=== PATIENT | female | born 1980 | race Caucasian/White ===

== ENCOUNTER 2016-09-11 03:24 | Inpatient (IN) | payer BC ==
--- NOTE | 2016-09-02 11:52 | PAT Medication Instructions ---
Service Date Sep 02, 2016. Current Home Medication List Acetaminophen (Tylenol), 325 MG PO PRN Amoxicillin (Amoxil), 500 MG PO TID Ascorbic Acid (Ascorbic Acid), 1,000 MG PO QPM Multivit/Min/Iron/Fol Ac/Pren ( Vitamin), 1 TAB PO QAM Medication Instructions For Your Scheduled Surgery - Hold the following medications the morning of surgery: Multivit/Min/Iron/Fol Ac/Pren ( Vitamin), 1 TAB PO QAM - Take the following medications as scheduled the night before surgery: Ascorbic Acid (Ascorbic Acid), 1,000 MG PO QPM Acetaminophen (Tylenol), 325 MG PO PRN If you have any questions please call us at [phone] or [phone] or [phone]
[2016-09-02 12:18] LABS: BASO % 0.1 %; BASO ABS # 0.01 K/uL (0-0.2); COMPLETE YES; EOS % 0.2 %; IG% 0.4 %; LYMPH % 18.3 %; LYMPH ABS # 1.52 K/uL (1.2-3.4); MEAN CELL VOLUME 88.2 fL (80-100); MEAN PLATELET VOLUME 12.3 fL (7.4-10.4); MONO % 7.1 %; NEUT % 73.9 %; PLATELET COUNT 190 K/uL (130-400); RED BLOOD COUNT 3.97 M/uL (4.2-5.4); WHITE BLOOD COUNT 8.31 K/uL (4.8-10.8)
[2016-09-11] VITALS (18 sets, daily range): BP systolic 110–130; BP diastolic 69–84; PULSE 63–87; TEMP 36.5–37; O2SAT 96–100; Ht 160 cm; Wt 65.5 kg
[~2016-09-11] VITALS: Ht 160 cm; Wt 65.5 kg
[~2016-09-11 03:24] MED LIST: ACET-1311 PO; AMOX500C3 PO; ASCO100061 PO; PRENTAB26 PO
[2016-09-11] MEDS ORDERED: LACTATED RINGER'S 1000ML 1,000 ML IV ONE (05:40)
[2016-09-11] MEDS ORDERED: CEFAZOLIN IV 2,000 MG in DEXTROSE 5% 50ML IV SCH (06:00)
[2016-09-11] MEDS ORDERED: CITRIC ACID/SODIUM CITRATE 15 ML UDC PO SCH (06:00)
[2016-09-11] MEDS ORDERED: LACTATED RINGER'S 1000ML 1,000 ML IV SCH (06:00)
--- NOTE | 2016-09-11 06:57 | History & Physical Bridge Note ---
H&P Re-Evaluation Bridge Note: I have examined the patient, reviewed the History & Physical and in the interval since the performance of the History & Physical I have noted the following changes of clinical significance: No changes noted
[2016-09-11] MEDS ORDERED: OXYTOCIN INJ 10 UNITS/ML VIAL ONE (07:01)
[2016-09-11] MEDS ORDERED: PHENYLEPHRINE HCL INJ 10 MG/ML VIAL ONE (07:01)
[2016-09-11] MEDS ORDERED: MoRPHine SULFATE PF 1 MG/ML 10 ML AMP/VIAL ONE (07:02)
[2016-09-11 07:39] LABS: BASO % 0.1 %; BASO ABS # 0.01 K/uL (0-0.2); EOS % 0.4 %; HEMATOCRIT 34.4 % (37-47); IG% 0.8 %; LYMPH ABS # 1.86 K/uL (1.2-3.4); MEAN CELL VOLUME 86.6 fL (80-100); MEAN CORPUSCULAR HEMOGLOBIN 30.2 pg (25-34); MONO % 10.6 %; NEUT % 69.1 %; PLATELET COUNT 187 K/uL (130-400); RED BLOOD COUNT 3.97 M/uL (4.2-5.4); WHITE BLOOD COUNT 9.81 K/uL (4.8-10.8)
[2016-09-11 07:44] LABS: COMPLETE YES; MEAN CORPUSCULAR HGB CONC 34.9 g/dl (32-36)
[2016-09-11] MEDS ORDERED: ONDANSETRON INJ 2 MG/ML 2 ML VIAL ONE (08:19)
[2016-09-11] MEDS: LACTATED RINGER'S 1000ML 1,000 ML IV SCH ×3 (08:48→18:14)
[2016-09-11] MEDS ORDERED: LACTATED RINGER'S 1000ML 500 ML IV PRN (08:58)
[2016-09-11] MEDS ORDERED: NALOXONE HCL INJ 1 MG in SODIUM CHLORIDE 0.9% 1000ML 1,000 ML IV PRN (08:58)
[2016-09-11] MEDS ORDERED: SODIUM CHLORIDE 0.9% 1000ML 1,000 ML IV PRN (08:58)
[2016-09-11] MEDS ORDERED: NALOXONE HCL INJ 0.08 MG in SYRINGE 1.8 ML IV PRN (08:58)
[2016-09-11] MEDS ORDERED: BENZOCAINE 20% AER SPR 82.5 GM CAN EXT PRN (09:00)
[2016-09-11] MEDS ORDERED: MoRPHine SULFATE PF 1 MG/ML 10 ML AMP/VIAL INT SPINAL PRN (09:00)
[2016-09-11] MEDS ORDERED: SUPERCREAM 0.870 % 15GM JAR EXT PRN (09:00)
[2016-09-11] MEDS ORDERED: DiphenhydrAMINE HCL 50 MG/ML VIAL IV PRN (09:00)
[2016-09-11] MEDS ORDERED: NALOXONE HCL 0.4 MG/1 ML VIAL/CARP IV PRN (09:00)
[2016-09-11] MEDS ORDERED: MoRPHine SULFATE 2 MG/ML CARP IV PRN (09:00)
[2016-09-11] MEDS ORDERED: HYDROCORTISONE ACETATE 25 MG SUPP PR PRN (09:00)
[2016-09-11] MEDS ORDERED: KETOROLAC TROMETHAMINE 30 MG/ML VIAL IV. PRN (09:00)
[2016-09-11] MEDS ORDERED: EpHEDrine SULFATE INJ 50 MG/ML AMP IV PRN (09:00)
[2016-09-11] MEDS ORDERED: NALBUPHINE HCL INJ 10 MG/ML AMP IV PRN (09:00)
[2016-09-11] MEDS ORDERED: LANOLIN OINT EXT PRN ×2 (09:00)
[2016-09-11] MEDS ORDERED: SENNA 8.6 MG TAB PO PRN (09:00)
[2016-09-11] MEDS ORDERED: DIPHTHERIA/TETANUS/PERTUSSIS 0.5 ML SYR/VIAL IM. ONE (09:00)
[2016-09-11] MEDS ORDERED: MAGNESIUM HYDROXIDE SUSP 30 ML UDC PO PRN (09:00)
[2016-09-11] MEDS ORDERED: ONDANSETRON INJ 2 MG/ML 2 ML VIAL IV PRN (09:00)
[2016-09-11] MEDS ORDERED: NO NARCOTICS OR SEDATIVES SCH (09:00)
[2016-09-11] MEDS ORDERED: MEPERIDINE HCL 25 MG/ML CARP IV PRN (09:00)
--- NOTE | 2016-09-11 09:06 | [facility] Post Operative Brief Note ---
Immediate Operative Summary Operative Date Sep 11, 2016. Pre-Operative Diagnosis REPEAT SECTION; HISTORY OF PRIOR T UTERINE INCISION; DESIRE FOR STERILIZATION Post-Operative Diagnosis SAME Procedure(s) Performed LOW TRANSVERSE SECTION AND BILATERAL TUBAL LIGATION Surgeon DR TRUONG Lead Sql Developer Surgeon(s) DR ROJAS Estimated Blood Loss 600 CC Findings Patient delivered a viable male via repeat C/S at 0807 on 09/11/2016 weighing 7#3oz in the vertex position. APGARs were 8 at 1 minute and 9 at 5 minutes. Please see pediatricians notes for further baby assessment. An intact placenta with a 3 VC delivered manually at 0808. Normal uterus and bilateral tubes and ovaries noted. Bilateral tubal ligation was performed via umberto technique. Tubal segments sent to pathology. Patient and baby tolerated the surgery well and was sent to recovery with stable vital signs. Fluids (cc crystalloids) 1750 Specimens PLACENTA-HOLD CORB BLOOD PORTION OF RIGHT AND LEFT FALLOPIAN TUBE Drains Arias to [place] Anesthesia Spinal Complication(s) None Disposition L&D
[2016-09-11] MEDS: OXYTOCIN INJ 30 UNITS in LACTATED RINGER'S 1000ML 1,000 ML IV SCH ×2 (09:11→17:32)
[2016-09-11] MEDS: SIMETHICONE 80 MG CHEW PO SCH ×3 (12:00→20:27)
--- NOTE | 2016-09-11 12:59 | Anesthesiology Progress Note ---
Anesthesia Post Op Note Date & Time Sep 11, 2016 at 13:00 Vital Signs Pain Intensity: 0.0 Vital Signs Past 12 Hours Date Time Temp Pulse Resp B/P Pulse Ox O2 Delivery O2 Flow Rate FiO2 09/11/16 12:03 18 98 09/11/16 12:03 36.5 76 18 110/74 98 Room Air 09/11/16 11:00 99 Room Air 09/11/16 11:00 Room Air 09/11/16 11:00 36.5 71 18 115/77 99 Room Air 09/11/16 11:00 18 99 Notes Mental Status: alert / awake / arousable, participated in evaluation Pt Amnestic to Procedure: Yes Nausea / Vomiting: adequately controlled Pain: adequately controlled Airway Patency, RR, SpO2: stable & adequate BP & HR: stable & adequate Hydration State: stable & adequate Neuraxial Anesthesia: was administered, sensory block resolved Anesthetic Complications: no major complications apparent
--- NOTE | 2016-09-11 17:21 | OPERATIVE REPORT ---
DATE OF OPERATION: 09/11/2016 PREOPERATIVE DIAGNOSES: 1. Intrauterine at 37 weeks and 6 days gestation. 2. History of prior vertical uterine incision, requesting repeat section. 3. Desires permanent sterilization. POSTOPERATIVE DIAGNOSES: Same. OPERATIVE PROCEDURE: Repeat low transverse section with bilateral tubal ligation. SURGEON: Dr. Siegel. CERTIFIED ORTHOTIST: Dr. Luna. ANESTHESIA: Spinal. ESTIMATED BLOOD LOSS: 600 mL. IV FLUIDS: 1750 mL crystalloids. URINE OUTPUT: 200 mL clear yellow urine. SPECIMENS: Placenta with 3-vessel cord, cord blood and portion of right and left fallopian tube. DRAINS: Arias to gravity. COMPLICATIONS: None. DISPOSITION: To labor and delivery. OPERATIVE FINDINGS: The patient delivered a viable male infant. The repeat section at 8:07 a.m. on 09/11/2016 weighing 7 pounds 3 ounces in the vertex position. Apgars were 8 at 1 minute and 9 at 5 minutes. Please see final assembly and packing supervisor's notes for further baby assessment. An intact placenta with 3-vessel cord was delivered manually at 808. Normal uterus and bilateral tubes and ovaries were noted. Bilateral tubal ligation was performed via [place] technique. Bilateral tubal segments were sent to pathology. The patient and baby tolerated the surgery well and were sent to recovery with stable vital signs. OPERATIVE PROCEDURE IN DETAIL: The patient was taken to the operating room where spinal anesthesia was administered. The patient was immediately placed in the dorsal supine position with a left lateral tilt and was prepped and draped in a manner appropriate for the procedure. Once the anesthesia was found to be adequate, a Pfannenstiel skin incision was made over the previous surgical scar and was carried down through to a layer of the rectus fascia. The fascia was nicked in the midline and extended bilaterally with curved Alexis scissors. The superior aspect of the fascial incision was grasped with Ronak clamps, elevated, and the rectus muscles were dissected off with the use of the curved Alexis scissors and electrocautery. Likewise, the inferior aspect of the fascial incision was grasped with Ronak clamps, elevated, and the rectus muscles were dissected off with the use of the curved Alexis scissors. The rectus muscles were in midline. Peritoneum was then entered and the peritoneal incision was then extended cephalocaudally with gentle traction. The bladder blade was then placed within the abdomen. The vesicouterine peritoneum was then identified and a bladder flap was created with Metzenbaum scissors and digital traction. The bladder flap was then reincorporated beneath the Terry blade. At this point, a transverse incision was made on the uterus and extended bilaterally with digital traction. Clear amniotic fluid was noted. The head was identified and delivered through the incision along with the rest of the body. Baby was bulb suctioned at delivery. Cord was clamped x2 and cut. The baby was then handed to an awaiting final assembly and packing supervisor for further evaluation and management. Cord blood was then obtained and intact placenta with 3-vessel cord was delivered through the incision. The uterus was then exteriorized and the uterus was then cleared of any trailing membranes and debris with the laparotomy sponge. The incision was then grasped with ringed forceps at 4 quadrants and was then closed with 0 Vicryl suture in continuous locking fashion. A second 0 Vicryl suture was used in imbricating fashion to ensure hemostasis. Any residual bleeding was then suture ligated with 0 Vicryl suture in a [id number] interrupted fashion. Excellent hemostasis was noted at the incision. Attention was then directed towards the right fallopian tube which was followed out to its fimbriated end, grasped at the midpoint and was suture ligated with 0 chromic suture in a Bibiana technique, it was double suture ligated with the 0 chromic. The tubal segment was then removed with Metzenbaum scissors and sent to pathology. The tubal stumps were then cauterized. The same was then done on the left fallopian tube which was followed out to its fimbriated end, grasped in the midpoint with a Omar clamp and was suture ligated with 0 chromic suture via Bibiana technique. Once ligated twice with 0 chromic suture, the tubal segment was then removed with Metzenbaum scissors and sent to pathology along with the right tubal segment. The tubal stumps were then cauterized. Excellent hemostasis was noted bilaterally. Attention was then directed towards the uterine incision which was again noted to be hemostatic. The bladder flap was reapproximated with 3-0 Vicryl suture in continuous running fashion. Excellent hemostasis was noted. The posterior cul-de-sac was then irrigated with warm saline solution. The uterus was then placed back within its normal anatomic position within the abdomen. The anterior cul-de-sac was then irrigated with warm saline solution. Again, the uterine incision was noted to be hemostatic. Seprafilm was placed over the uterine incision along the fundus of the uterus. All instruments were then removed from the abdomen. The peritoneum was then grasped with Dior clamps and was closed with 2-0 Vicryl suture in a continuous running fashion. The rectus fascia was then closed with 0 Vicryl suture in continuous running fashion. The subcutaneous tissue was then reapproximated with 2-0 Vicryl suture in an interrupted fashion. Skin was then closed with sofia. Excellent hemostasis was noted through all tissue layers. All sponge and instrument counts were found to be correct x2. Both the patient and baby tolerated the surgery well and were sent to recovery with stable vital signs. I attest to the content of the Intraoperative Record and any orders documented therein. Any exceptio ns are noted below.
[2016-09-11] MEDS: DOCUSATE SODIUM 100 MG CAP PO SCH (20:27)
[2016-09-12] VITALS: O2SAT 98
[2016-09-12 01:00] VITALS: O2SAT 96
[2016-09-12] MEDS ORDERED: DC INTRASPINAL MORPHINE SCH (01:52)
[2016-09-12] MEDS ORDERED: ONDANSETRON INJ 2 MG/ML 2 ML VIAL IV PRN (01:53)
[2016-09-12] MEDS ORDERED: KETOROLAC TROMETHAMINE 30 MG/ML VIAL IV. PRN (01:53)
[2016-09-12] MEDS ORDERED: OXYCODONE/ACETAMINOPHEN 5-325 TAB PO PRN ×2 (01:53)
[2016-09-12] MEDS ORDERED: ZOLPIDEM TARTRATE 5 MG TAB PO PRN (01:53)
[2016-09-12 03:15] VITALS: BP 128/81; PULSE 84; TEMP 36.9
[2016-09-12] MEDS: IBUPROFEN 600 MG TAB PO PRN ×2 (05:42→13:06)
[2016-09-12 06:53] LABS: BASO % 0.1 %; BASO ABS # 0.02 K/uL (0-0.2); COMPLETE YES; EOS % 0.3 %; IG% 0.5 %; LYMPH % 10.2 %; LYMPH ABS # 1.54 K/uL (1.2-3.4); MEAN CELL VOLUME 87.3 fL (80-100); MEAN CORPUSCULAR HEMOGLOBIN 28.9 pg (25-34); MEAN CORPUSCULAR HGB CONC 33.1 g/dl (32-36); MEAN PLATELET VOLUME 12.1 fL (7.4-10.4); MONO % 8.7 %; NEUT % 80.2 %; PLATELET COUNT 200 K/uL (130-400); RED BLOOD COUNT 4.01 M/uL (4.2-5.4); WHITE BLOOD COUNT 15.11 K/uL (4.8-10.8)
[2016-09-12 07:40] VITALS: BP 115/80; PULSE 72; TEMP 36.8
--- NOTE | 2016-09-12 08:02 | OB/GYN Progress Note ---
[employer] SALES REPRESENTATIVE Progress Note Date of Service: Sep 12, 2016. Patient is seen and examined. She feels well, no complaints. Pain is under control with oral meds. No dizziness Not OOB yet Tolerating clear diet with out N&V Flatus + BM neg Bleeding is minimal No fever/ chills/ CP/ SOB/ N&V/ Leg pain Breast feeding without problems Date Time Temp Pulse Resp B/P Pulse Ox O2 Delivery O2 Flow Rate FiO2 09/12/16 07:40 36.8 72 18 115/80 09/12/16 03:15 36.9 84 18 128/81 09/12/16 01:00 18 96 09/12/16 00:00 18 98 09/11/16 23:45 37.0 87 18 128/79 09/11/16 23:45 98 Room Air 09/11/16 23:00 18 100 09/11/16 22:30 18 98 09/11/16 21:30 16 97 09/11/16 20:32 16 96 09/11/16 19:15 36.9 86 16 114/69 09/11/16 19:15 97 Room Air 09/11/16 19:15 16 97 09/11/16 19:15 36.9 86 16 114/69 97 Room Air 09/11/16 18:07 36.9 73 18 129/83 97 Room Air 09/11/16 18:06 18 97 09/11/16 17:05 18 97 09/11/16 17:03 36.9 72 18 116/80 97 Room Air 09/11/16 16:12 36.9 77 18 128/84 09/11/16 15:15 17 98 09/11/16 15:15 Room Air 09/11/16 15:14 16 98 09/11/16 15:14 36.9 63 16 117/78 09/11/16 14:06 18 100 09/11/16 14:05 36.8 76 18 112/76 100 Room Air 09/11/16 13:02 18 98 09/11/16 13:02 71 18 130/80 99 Room Air 09/11/16 12:03 18 98 09/11/16 12:03 36.5 76 18 110/74 98 Room Air 09/11/16 11:00 99 Room Air 09/11/16 11:00 Room Air 09/11/16 11:00 36.5 71 18 115/77 99 Room Air 09/11/16 11:00 18 99 Last 24 Hours Test 09/12/16 06:04 White Blood Count 15.11 K/uL Red Blood Count 4.01 M/uL Hemoglobin 11.6 g/dL Hematocrit 35.0 % Mean Corpuscular Volume 87.3 fL Mean Corpuscular Hemoglobin 28.9 pg Mean Corpuscular Hemoglobin Concent 33.1 g/dl Platelet Count 200 K/uL Mean Platelet Volume 12.1 fL Neutrophils (%) (Auto) 80.2 % Lymphocytes (%) (Auto) 10.2 % Monocytes (%) (Auto) 8.7 % Eosinophils (%) (Auto) 0.3 % Basophils (%) (Auto) 0.1 % Neutrophils # (Auto) 12.12 K/uL Lymphocytes # (Auto) 1.54 K/uL Monocytes # (Auto) 1.32 K/uL Eosinophils # (Auto) 0.04 K/uL Basophils # (Auto) 0.02 K/uL RDW Standard Deviation 41.3 fL RDW Coefficient of Variation 12.9 % Immature Granulocyte % (Auto) 0.5 % Immature Granulocyte # (Auto) 0.07 K/uL PE: General: Alert, orientedx3, NAD CVS: S1S2 RRR Lungs; CTAB Abd: soft, NT, fundus firm, below Umbilicus Dressing: Clean, dry, intact Perineum intact, Lochia rubra minimal Ext; NT, no edema, SCD 's on AP: 36 yo s/p RC Section+ BTL, pod# 1 VSS Afebrile doing well Continue routine postop care Encourage ambulation, PO intake All questions were answered
[2016-09-12] MEDS: FERROUS SULFATE 325 MG TAB PO SCH (08:03)
[2016-09-12] MEDS: PRENATAL VITAMIN TAB PO SCH (08:03)
[2016-09-12] MEDS: DOCUSATE SODIUM 100 MG CAP PO SCH ×2 (08:03→20:44)
[2016-09-12] MEDS: SIMETHICONE 80 MG CHEW PO SCH ×3 (08:04→17:06)
[2016-09-12 08:18] VITALS: O2SAT 97
[2016-09-12] MEDS ORDERED: BISACODYL 5 MG TABEC PO ONE (22:00)
[2016-09-13] VITALS: BP 117/76; PULSE 83; TEMP 36.5; O2SAT 96
[2016-09-13] MEDS: IBUPROFEN 600 MG TAB PO PRN ×2 (00:11→09:32)
[2016-09-13 06:27] LABS: HEMATOCRIT 33.1 % (37-47)
[2016-09-13 07:55] VITALS: BP 124/85; PULSE 74; TEMP 36.6; O2SAT 99
[2016-09-13] MEDS ORDERED: MTR600X PO (08:08)
--- NOTE | 2016-09-13 08:10 | Discharge Instructions ---
Discharge Instructions Admission Reason for Admission: Prior Caesarean Section; Hx Of Vertical Discharge Discharge Diagnosis / Problem: term delivered Discharge Goals Goal(s): Routine recovery after Activity Recommendations Activity Limitations: as noted below Lifting Limitations: none, no more than 10 pounds Exercise/Sports Limitations: gradually increase as tolerated May Resume Sexual Activity: after follow-up appointment Shower/Bathe: no limitations Driving or Machine Use: resume 3 days after discharge . Instructions / Follow-Up Instructions / Follow-Up ACTIVITY RECOMMENDATIONS: * Gradual return to full activity over the next 2-3 weeks. * No lifting - nothing heavier than baby over the next 2-3 weeks. * Do not engage in vigorous exercise, sexual activity or sports until cleared by your physician. * Do not drive or operate any motorized equipment until cleared by your physician. * You may shower/bathe daily. BREAST CARE: If you are not breast feeding: * Wear a supportive bra 24 hours a day for one to two weeks. * Avoid stimulating your breasts and nipples as much as possible during the first few weeks after delivery. * When taking a shower, have the warm water hit your back, not breasts. * When your breasts feel full, apply ice packs. Usually three to four times a day helps ease the discomfort. * Take a mild pain medication (Tylenol/Motrin) when you are uncomfortable. If breast feeding: * Use breast milk to lubricate nipples. Lansinoh cream may be used for sore nipples. You do not need to remove cream prior to breast feeding. If using a different brand of cream, check the label for directions regarding removal of cream prior to nursing. * Wear a supportive bra. * If having problems with breasts or breast feeding, call a nursing consultant or your health care provider. OVER THE COUNTER MEDICATION: * For discomfort or pain, you may use Acetaminophen (Tylenol), Ibuprofen (Advil ), or Naproxen (Aleve) following the package directions. * For constipation you may use Colace following the package directions. SPECIAL CARE INSTRUCTIONS: When you are discharged from the hospital, it is important for you to follow the instructions listed below: * During the first week at home, you should be able to care for yourself and your baby. In addition, the usual light household activities are encouraged. * Limit your activities to the way you feel. Do not try to clean the house or move furniture. Be sensible. * If you actively engage in sports and have done so up until the time of your delivery, you may resume these activities as soon as you feel able. This may take up to one month or even longer. Use good judgment. * Continue to take your vitamins for at least six weeks after the of your baby. * Your diet need not be limited unless you were on a special diet before your delivery. Breast-feeding mothers need around 2500 calories per day and at least 64-80 ounces of fluid per day (8 to 10 glasses). * You should eat foods from the four major food groups. Crash diets or fad diets are to be avoided. Eating lean meats, fresh fruits and vegetables, low-fat dairy products, high fiber foods and a regular exercise program, will help you get back to your pre- weight without putting your health at risk. * Constipation is sometimes a problem after delivery. Take a mild laxative as needed. If breast feeding, Milk of Magnesia is acceptable to use. You may use a suppository or Fleets enema if no episiotomy. * A daily shower or tub bath is suggested. Be sure to thoroughly and gently dry the perineum. * A bloody vaginal discharge will usually continue until around four weeks post . A small amount of bleeding may continue for as long as six weeks. Vaginal discharge changes from the bright red bleeding after delivery to pink then brownish and finally yellowish-pink before becoming white and disappearing. * Bleeding may increase with activity. Your first period may come in 4-8 weeks. If you are breast feeding, your period may be delayed even longer. * [place] (sex) can begin whenever both you and your partner feel comfortable and do not have any form of genital infection. It is recommended that you wait at least six weeks for internal and external healing to occur. If you have questions, please talk to your health care practitioner. A condom should be used to prevent infection and . * Foreplay, gentle intercourse and lubrication is very important the first several times to prevent pain. A water-based lubricant such as K-Y jelly or Astroglide may be used. * Tampons and/or Douching should be avoided until after six weeks check-up. * If you have RH negative blood and your baby is RH positive, you will receive RHOGAM by injection prior to discharge. The nurse will give you a card to keep with you that has the date and place that you received RHOGAM after delivery. * During your care, you had a Rubella screen done to check for the presence of rubella antibodies in your blood. If your test was negative, you will receive a Rubella vaccine prior to discharge. This vaccine may cause a fever, soreness at the injection site and flu-like symptoms. If these symptoms persist, notify your health care practitioner. is not advised for three months after a Rubella vaccine. * Verbalizes understanding of car seat law as reviewed with patient nursing. * Car Seat hand-out given and reviewed with patient by nursing. * Shaken baby information reviewed with patient by nursing. Call you doctor if: * Heavy bleeding (saturating several pads an hour) or passing clots the size of your fist. * A fever >101 degrees F (38.3 degrees C) on two occasions four hours apart and /or chills. * Unusual pain in the pelvic or vaginal areas. Pain should improve each day . * Call the doctor for any increased redness, drainage or swelling around the incision and any pain unrelieved by prescribed pain medication. * Any signs or symptoms of phlebitis (possible blood clots forming in the veins ): leg pain, warm, red or swollen area on leg. * "Baby Blues" lasting longer than two weeks. If you have any questions or concerns, call your health care practitioner at . FOLLOW-UP VISIT: * Incision check (staple removal) in 1 week. Please call doctor's office at to set up appointment. * Please call the office at to schedule a 6 week examination. It is important you keep this appointment. * It is important for you to make arrangements for either yearly or twice yearly check-ups thereafter. Current Hospital Diet Patient's current hospital diet: Regular OB Diet Discharge Diet Recommended Diet: Regular OB Diet Procedures Procedures Performed: LOW TRANSVERSE SECTION AND BILATERAL TUBAL LIGATION Pending Studies Studies pending at discharge: no Medical Emergencies . Who to Call and When: Medical Emergencies: If at any time you feel your situation is an emergency, please call 911 immediately. . Non-Emergent Contact Non-Emergency issues call your: Primary Care Provider . . "Provider Documentation" section prepared by Sahil Dueñas. VTE Core Measure Inpt VTE Proph given/why not?: Treatment not indicated
--- NOTE | 2016-09-13 08:12 | Surgery Progress Note ---
Surgery Progress Note Date of Service Sep 13, 2016. Subjective Post OP Day: 2 + ambulating, + feeling well, + flatus, + pain controlled Objective Vital Signs: Date Time Temp Pulse Resp B/P Pulse Ox O2 Delivery O2 Flow Rate FiO2 09/13/16 00:00 36.5 83 18 117/76 09/13/16 00:00 96 Room Air 09/12/16 16:00 Room Air 09/12/16 08:18 97 Room Air General Appearance: no apparent distress Abdomen: non tender, non distended, soft Incision(s): clean, dry, intact Extremities: non-tender, normal inspection, no pedal edema Laboratory Results: Results Past 24 Hours Test 09/13/16 06:00 Range/Units Hemoglobin 11.0 12.0-16.0 g/dL Hematocrit 33.1 37-47 % Assessment & Plan POD#2 discharged regular diet
[2016-09-13] MEDS ORDERED: BISACODYL 10 MG SUPP PR PRN (09:00)
[2016-09-13] MEDS: DOCUSATE SODIUM 100 MG CAP PO SCH (09:32)
[2016-09-13] MEDS: PRENATAL VITAMIN TAB PO SCH (09:32)
[2016-09-13] MEDS: SIMETHICONE 80 MG CHEW PO SCH (09:32)
[2016-09-13] MEDS: FERROUS SULFATE 325 MG TAB PO SCH (09:32)
[2016-09-13 12:55] VITALS: BP_DIAS 85; PULSE 74; TEMP 36.6
--- NOTE | 2016-09-17 07:27 | Discharge Summary ---
Discharge Summary Date of Service Sep 17, 2016. Discharge Summary Admission Date: Sep 11, 2016 at 05:33 Discharge Date: Sep 13, 2016 Discharge Disposition: Home Principal Diagnosis: IUP at 37.6 weeks, Hx prior C/S with Inverted T uterine incision, Requesting permanent sterilization Procedures: Repeat section with bilateral tubal ligation Medication Reconciliation New Medications: Ibuprofen (Ibuprofen) 600 Mg Tab 600 MG PO Q4H PRN for Pain, HUANG, Cramping, or Fever, #30 TAB 2 Refills Continued Medications: Ascorbic Acid (Ascorbic Acid) 1,000 Mg Tab 1000 MG PO QPM Multivit/Min/Iron/Fol Ac/Pren ( Vitamin) Tab 1 TAB PO QAM, TAB Admission Information HPI (per Admitting provider): Patient is a 36 y/o @ 37.6 weeks with a history of a prior C/S and had an inverted T uterine incision. Was recommended to deliver via repeat C/S prior to 38 weeks. Her care has been uncomplicated. Risks, benefits and alternatives were discussed and informed consent has been signed. Physical Exam (per Admitting): General Appearance: WD/WN, no apparent distress Respiratory/Chest: chest non-tender, lungs clear Cardiovascular: regular rate, rhythm Abdomen/GI: normal bowel sounds, soft Neurologic/Psych: alert, oriented x 3 Skin: normal color, warm/dry, no rash Hospital Course Patient underwent a scheduled repeat C/S with a bilateral tubal ligation on the day of admission without complications. Her postoperative recovery was uneventful. Her moser catheter was removed on POD # 1. Had no difficulty with ambulation, tolerated a regular diet. Pain was well controlled. Incision was clean, dry and intact. She was discharged home on POD # 2 with discharge instructions. Total time spent on discharge = 20 mins This includes examination of the patient, discharge planning, medication reconciliation, and communication with other providers. Discharge Instructions ACTIVITY RECOMMENDATIONS: * Gradual return to full activity over the next 2-3 weeks. * No lifting - nothing heavier than baby over the next 2-3 weeks. * Do not engage in vigorous exercise, sexual activity or sports until cleared by your physician. * Do not drive or operate any motorized equipment until cleared by your physician. * You may shower/bathe daily. BREAST CARE: If you are not breast feeding: * Wear a supportive bra 24 hours a day for one to two weeks. * Avoid stimulating your breasts and nipples as much as possible during the first few weeks after delivery. * When taking a shower, have the warm water hit your back, not breasts. * When your breasts feel full, apply ice packs. Usually three to four times a day helps ease the discomfort. * Take a mild pain medication (Tylenol/Motrin) when you are uncomfortable. If breast feeding: * Use breast milk to lubricate nipples. Lansinoh cream may be used for sore nipples. You do not need to remove cream prior to breast feeding. If using a different brand of cream, check the label for directions regarding removal of cream prior to nursing. * Wear a supportive bra. * If having problems with breasts or breast feeding, call a foreign law consultant or your health care provider. OVER THE COUNTER MEDICATION: * For discomfort or pain, you may use Acetaminophen (Tylenol), Ibuprofen (Advil ), or Naproxen (Aleve) following the package directions. * For constipation you may use Colace following the package directions. SPECIAL CARE INSTRUCTIONS: When you are discharged from the hospital, it is important for you to follow the instructions listed below: * During the first week at home, you should be able to care for yourself and your baby. In addition, the usual light household activities are encouraged. * Limit your activities to the way you feel. Do not try to clean the house or move furniture. Be sensible. * If you actively engage in sports and have done so up until the time of your delivery, you may resume these activities as soon as you feel able. This may take up to one month or even longer. Use good judgment. * Continue to take your vitamins for at least six weeks after the of your baby. * Your diet need not be limited unless you were on a special diet before your delivery. Breast-feeding mothers need around 2500 calories per day and at least 64-80 ounces of fluid per day (8 to 10 glasses). * You should eat foods from the four major food groups. Crash diets or fad diets are to be avoided. Eating lean meats, fresh fruits and vegetables, low-fat dairy products, high fiber foods and a regular exercise program, will help you get back to your pre- weight without putting your health at risk. * Constipation is sometimes a problem after delivery. Take a mild laxative as needed. If breast feeding, Milk of Magnesia is acceptable to use. You may use a suppository or Fleets enema if no episiotomy. * A daily shower or tub bath is suggested. Be sure to thoroughly and gently dry the perineum. * A bloody vaginal discharge will usually continue until around four weeks post . A small amount of bleeding may continue for as long as six weeks. Vaginal discharge changes from the bright red bleeding after delivery to pink then brownish and finally yellowish-pink before becoming white and disappearing. * Bleeding may increase with activity. Your first period may come in 4-8 weeks. If you are breast feeding, your period may be delayed even longer. * Coaling (sex) can begin whenever both you and your partner feel comfortable and do not have any form of genital infection. It is recommended that you wait at least six weeks for internal and external healing to occur. If you have questions, please talk to your health care practitioner. A condom should be used to prevent infection and . * Foreplay, gentle intercourse and lubrication is very important the first several times to prevent pain. A water-based lubricant such as K-Y jelly or Astroglide may be used. * Tampons and/or Douching should be avoided until after six weeks check-up. * If you have RH negative blood and your baby is RH positive, you will receive RHOGAM by injection prior to discharge. The nurse will give you a card to keep with you that has the date and place that you received RHOGAM after delivery. * During your care, you had a Rubella screen done to check for the presence of rubella antibodies in your blood. If your test was negative, you will receive a Rubella vaccine prior to discharge. This vaccine may cause a fever, soreness at the injection site and flu-like symptoms. If these symptoms persist, notify your health care practitioner. is not advised for three months after a Rubella vaccine. * Verbalizes understanding of car seat law as reviewed with patient nursing. * Car Seat hand-out given and reviewed with patient by nursing. * Shaken baby information reviewed with patient by nursing. Call you doctor if: * Heavy bleeding (saturating several pads an hour) or passing clots the size of your fist. * A fever >101 degrees F (38.3 degrees C) on two occasions four hours apart and /or chills. * Unusual pain in the pelvic or vaginal areas. Pain should improve each day . * Call the doctor for any increased redness, drainage or swelling around the incision and any pain unrelieved by prescribed pain medication. * Any signs or symptoms of phlebitis (possible blood clots forming in the veins ): leg pain, warm, red or swollen area on leg. * "Baby Blues" lasting longer than two weeks. If you have any questions or concerns, call your health care practitioner at . FOLLOW-UP VISIT: * Incision check (staple removal) in 1 week. Please call doctor's office at to set up appointment. * Please call the office at to schedule a 6 week examination. It is important you keep this appointment. * It is important for you to make arrangements for either yearly or twice yearly check-ups thereafter.
== END 2016-09-13 13:20 | disposition home or self-care (01) | DRG 766 ==
LOC: C.LD 05:33 → C.OBG 11:18 → EDSTATUS 11:28
PROVIDERS: ADMIT Obstetrics & Gynecology; ATTEND Obstetrics & Gynecology
PROC: 0UL70ZZ Occlusion of Bilateral Fallopian Tubes, Open Approach (ICD-10-PCS; principal; 2016-09-11 07:30)
PROC: 10D00Z1 Extraction of Products of Conception, Low, Open Approach (ICD-10-PCS; principal; 2016-09-11 07:30)
PROC: 0UB70ZZ Excision of Bilateral Fallopian Tubes, Open Approach (ICD-10-PCS; principal; 2016-09-11 07:30)
DX: O34.212 Maternal care for vertical scar from previous cesarean delivery (principal); O99.52 Diseases of the respiratory system complicating childbirth; J32.9 Chronic sinusitis, unspecified; Z30.2 Encounter for sterilization; Z37.0 Single live birth; Z3A.37 37 weeks gestation of pregnancy